=== PATIENT | female | born 1990 | race African-American/Black ===

== ENCOUNTER 2017-05-09 13:58 | Emergency (ER) | payer BC ==
[~2017-05-09] VITALS: Ht 175.3 cm; Wt 63.5 kg
[~2017-05-09 13:58] MED LIST: ALBUTEROL17 GM INH; AMOXICILLIN PO; AMOXICILLIN500 M1 PO; AZITHROMYCIN250 MG PO; BENZONATATE PO; ERYTHROMYCIN PO; ERYTHROMYCIN250 M1 PO; FLEXERIL10 MG PO; FLONASE16 GM; IBUPROFEN800 MG PO; LORTAB 5/500 TA1 TA1 PO; MEDROL DOSEPAK4 MG DOB; MIGRAINE PILL PO; NAPROXEN PO; NO MEDICATIONS; TYLENOL #3 PO; ZYRTEC PO
== END 2017-05-09 14:32 | disposition home or self-care (01) ==
LOC: CFTX 13:58 → CED 13:58 → CFTX 14:28
DX: J06.9 Acute upper respiratory infection, unspecified (principal); Z88.0 Allergy status to penicillin; Z88.1 Allergy status to other antibiotic agents; F17.210 Nicotine dependence, cigarettes, uncomplicated
CPT/HCPCS: 99283